=== PATIENT | male | born 1965 | race Two or more races ===

== ENCOUNTER 2020-05-20 08:27 | Inpatient (IN) | payer OTHER ==
[~2020-05-20] VITALS: Ht 182.9 cm; Wt 100.1 kg
[2020-05-20] MEDS ORDERED: DexAMETHasone SOD PHOS 10MG/1ML VIAL INJ ONE (08:55)
[2020-05-20] MEDS ORDERED: cefTRIAXone 1GM/50ML D5W 50 ML IV ONE ×2 (08:55→09:00)
[2020-05-20] MEDS ORDERED: SODIUM CHLORIDE 0.9% 1,000 ML IV ONE ×2 (09:00)
[2020-05-20] MEDS ORDERED: DexAMETHasone SOD PHOS 10MG/1ML VIAL INJ IV ONE (09:00)
[2020-05-20 09:22] LABS: Basophils # (auto) 0.1 10 ^3/uL (0-0.2); Basophils % (auto) 1.1 % (0.0-2.0); Eosinophils # (auto) 0.2 10 ^3/uL (0-0.8); Eosinophils % (auto) 2.2 % (0.0-7.0); Hematocrit 46.3 % (41.0-53.0); Hemoglobin 15.7 g/dL (13.5-17.5); Lymphocytes # (auto) 1.6 10 ^3/uL (0.4-5.4); Lymphocytes % (auto) 15.3 % (10.0-50.0); Mean Corpuscular Hemoglobin 29.9 pg (28.0-32.0); Mean Corpuscular Hgb Conc. 33.9 g/dL (32.0-36.0); Mean Corpuscular Volume 88.4 fL (80.0-100.0); Monocytes # (auto) 0.9 10 ^3/uL (0-1.3); Monocytes % (auto) 8.6 % (0.0-12.0); Neutrophils # (auto) 7.7 10 ^3/uL (1.6-8.6); Neutrophils % (auto) 72.8 % (37.0-80.0); Nucleated Red Blood Cells % 0.3 %; Platelet Count (auto) 520 10^3/uL (140-450); Red Blood Cells 5.24 10^6/uL (4.5-5.90); Red Cell Distribution Width 13.1 % (11.8-14.3); White Blood Cell 10.5 10^3/uL (4.4-10.8)
[2020-05-20 09:35] LABS: Albumin 2.7 g/dL (3.4-5.0); Anion Gap 10 (5-15); Blood Urea Nitrogen 11 mg/dL (7-18); Calcium 9.3 mg/dL (8.5-10.1); Carbon Dioxide 22 mmol/L (21-32); Chloride 103 mmol/L (98-107); Potassium 4.2 mmol/L (3.5-5.1); Sodium 135 mmol/L (136-145)
[2020-05-20 09:38] LABS: Lactic Acid w/Reflex 3.2 mmol/L (0.4-2.0)
[2020-05-20 09:43] LABS: Alanine Aminotransferase 25 U/L (16-61); Alkaline Phosphatase 112 U/L (45-117); Aspartate Aminotransferase 36 U/L (15-37); Bilirubin, Total 0.9 mg/dL (0.2-1.0); GFR African American 100 mL/min; GFR Non-African American 83 mL/min; Glucose 266 mg/dL (74-106)
[2020-05-20 09:46] LABS: INR 1.12 (0.9-1.15); Partial Thromboplastin Time 28.4 sec (23.0-31.2)
[2020-05-20 09:48] LABS: CRP High Sensitivity 7.97 mg/dL (< 0.3)
[2020-05-20] MEDS ORDERED: PIPERACILLIN-TAZOB 3.375GM 100 ML IV ONE (10:15)
[2020-05-20] MEDS ORDERED: ACETAMINOPHEN 500 MG TAB PO PRN (10:15)
[2020-05-20] MEDS ORDERED: MORPHINE SULF INJ 2 MG/ML SYRINGE 1ML IV PRN ×2 (10:15)
[2020-05-20] MEDS ORDERED: ACETAMINOPHEN 325 MG TAB PO PRN (10:15)
[2020-05-20] MEDS ORDERED: ONDANSETRON HCL 4 MG/2 ML VIAL IV PRN (10:15)
[2020-05-20] MEDS ORDERED: DOCUSATE SOD 100 MG CAP PO PRN (10:15)
[2020-05-20] MEDS ORDERED: hydrALAZINE HCL 25 MG TAB PO PRN (10:15)
[2020-05-20] MEDS ORDERED: methylPREDNISolone SOD SUCC 125 MG/2 ML VL IV ONE (10:15)
[2020-05-20] MEDS ORDERED: ENOXAPARIN SOD 100 MG/1 ML SYRINGE SC ONE (10:15)
[2020-05-20] MEDS ORDERED: NITROGLYCERIN 0.4 MG SL TAB SL PRN (10:15)
[2020-05-20] MEDS ORDERED: DEXTROSE (50%) 50ML SYRG IV PRN ×2 (10:15→23:00)
[2020-05-20] MEDS ORDERED: VANCOMYCIN PER PHARMACY 0 MG IV SCH (10:15)
[2020-05-20] MEDS ORDERED: ALUM & MAG HYDROX-SIMETH LIQ(MAALOX) 30 ML PO PRN (10:15)
[2020-05-20] MEDS: PIPERACILLIN-TAZOB 3.375GM 100 ML IV SCH ×3 (10:37→23:41)
[2020-05-20] MEDS: SODIUM CHLORIDE 0.9% 1,000 ML IV SCH (10:41)
[2020-05-20] MEDS ORDERED: THIAMINE 100mg/ml INJ (200mg/2ml VIAL) IV ONE (10:45)
--- NOTE | 2020-05-20 11:21 | NUR ---
Telemetry admit from [facility] admitted to Telemetry unit after SBAR received. Patient oriented to JONY DERAS, RN primary RN, unit, room, bed, and unit policies regarding patient care and visiting hours. Patient now on continuous telemetry monitoring, tele box # 10. Patient placed on bedside oxygen, weighed by bed scale and encouraged to call if they need something. All questions and concerns addressed, patient verbalized understanding. VS: 97.5, 107, 19, 91%, 148/94. No complaints of pain or discomfort at this time.
[2020-05-20 11:30] VITALS: BP 148/84
[2020-05-20] MEDS ORDERED: MULT-1018 PO (11:56)
[2020-05-20] MEDS ORDERED: ALBUAER3 IN (11:59)
--- NOTE | 2020-05-20 12:30 | NUR ---
Med rec Per patient he does not take any home medications
[2020-05-20] MEDS: ACCU-CHEK COMFORT CURVE STRIP VI SCH ×4 (12:52→23:41)
[2020-05-20] MEDS: InsuLIN REG 1unit/0.01ml Soln (100units/ml) SC SCH ×3 (13:01→23:46)
[2020-05-20] MEDS: ALBUTEROL SULF HFA 90MCG INH 200DOSE IN SCH ×2 (14:00→20:17)
[2020-05-20] MEDS: methylPREDNISolone SOD SUCC 40 MG/ML VL IV SCH ×2 (14:28→22:07)
[2020-05-20 15:57] LABS: Cholesterol 197 mg/dL (< 200)
[2020-05-20 16:01] LABS: HDL Cholesterol 22 mg/dL (40-59); LDL Cholesterol 139 mg/dL (< 100); Triglycerides 230 mg/dL (< 150)
[2020-05-20 17:00] VITALS: BP 139/87
--- NOTE | 2020-05-20 17:00 | NUR ---
Blood sugar Patients blood sugar 439. Administered 15 units per sliding scale and paged Dr Lee to inform of blood sugar and to receive any further orders.
[2020-05-20] MEDS ORDERED: INSULIN LANTUS (GLARGINE) 1 /0.01ml (100units/ml) SC ONE (17:30)
--- NOTE | 2020-05-20 17:30 | NUR ---
Informed Dr Lee of patients blood sugar of 439. Order received for 1 time dose of 10 units Lantus now and change sliding scale to aggressive. Orders carried out as received.
[2020-05-20] MEDS: BUDESONIDE (INHALATION) 180 MCG IH IN SCH (20:17)
[2020-05-20] MEDS: FAMOTIDINE (10MG/ML) 2ML VL IV SCH (21:51)
[2020-05-20] MEDS: ENOXAPARIN SOD 100 MG/1 ML SYRINGE SC SCH (21:54)
[2020-05-20 22:00] VITALS: BP 140/82
[2020-05-20] MEDS ORDERED: InsuLIN REG 1unit/0.01ml Soln (100units/ml) SC SCH (22:00)
[2020-05-20] MEDS ORDERED: ATORVASTATIN 20 MG TAB PO SCH (22:00)
--- NOTE | 2020-05-20 22:07 | NUR ---
HOSPITALIST PAGED PATIENTS BS IS 471. PATIENT RECENTLY CHANGED TO AGGRESSIVE SCALE DURING DAYSHIFT BUT STILL ON REGULAR DIET AND BEDTIME SCALE DURING NIGHT. PATIENT IS ASYMPTOMATIC. PATIENT GIVEN 10 UNITS PER SCALE. WILL AWAIT CALL BACK OR ORDERS.
--- NOTE | 2020-05-20 22:45 | NUR ---
HOSPITALIST CONTACTED HOSPITALIST INFORMED OF PATIENT'S BS AND CURRENT ORDERS. ORDERS ADJUSTED AND PATIENT WILL BE MONITORED MORE FREQUENTLY AND DIET CHANGED UNTIL SUGAR IS MANAGED. WILL IMPLEMENT ORDERS AND CONTINUE TO MONITOR.
--- NOTE | 2020-05-21 | NUR ---
BS Davida BERNABE ALREADY AWARE AND ORDERS IMPLEMENTED AT THIS TIME. WILL CONTINUE TO MONITOR.
[2020-05-21 00:12] VITALS: BP 140/82
[2020-05-21] MEDS: SODIUM CHLORIDE 0.9% 1,000 ML IV SCH (02:55)
[2020-05-21] MEDS: ACCU-CHEK COMFORT CURVE STRIP VI SCH ×4 (04:11→22:00)
[2020-05-21] MEDS: InsuLIN REG 1unit/0.01ml Soln (100units/ml) SC SCH ×4 (04:12→22:00)
[2020-05-21 05:00] VITALS: BP 119/78
[2020-05-21] MEDS: methylPREDNISolone SOD SUCC 40 MG/ML VL IV SCH (05:51)
[2020-05-21] MEDS: PIPERACILLIN-TAZOB 3.375GM 100 ML IV SCH (05:51)
[2020-05-21 06:14] LABS: Basophils # (auto) 0 10 ^3/uL (0-0.2); Basophils % (auto) 0.3 % (0.0-2.0); Eosinophils # (auto) 0 10 ^3/uL (0-0.8); Hematocrit 38.9 % (41.0-53.0); Hemoglobin 13.3 g/dL (13.5-17.5); Lymphocytes # (auto) 1.1 10 ^3/uL (0.4-5.4); Lymphocytes % (auto) 10.1 % (10.0-50.0); Mean Corpuscular Hemoglobin 30.2 pg (28.0-32.0); Mean Corpuscular Hgb Conc. 34.3 g/dL (32.0-36.0); Mean Corpuscular Volume 88.1 fL (80.0-100.0); Monocytes # (auto) 0.6 10 ^3/uL (0-1.3); Monocytes % (auto) 5.3 % (0.0-12.0); Neutrophils # (auto) 9.2 10 ^3/uL (1.6-8.6); Neutrophils % (auto) 84.3 % (37.0-80.0); Platelet Count (auto) 402 10^3/uL (140-450); Red Blood Cells 4.42 10^6/uL (4.5-5.90); Red Cell Distribution Width 13.1 % (11.8-14.3); White Blood Cell 10.9 10^3/uL (4.4-10.8)
[2020-05-21 06:34] LABS: Calcium 8.8 mg/dL (8.5-10.1); Potassium 4.3 mmol/L (3.5-5.1)
[2020-05-21 06:41] LABS: Albumin 2.3 g/dL (3.4-5.0); Bilirubin, Total 0.6 mg/dL (0.2-1.0); Total Protein 7.1 g/dL (6.4-8.2)
[2020-05-21] MEDS ORDERED: InsuLIN REG 1unit/0.01ml Soln (100units/ml) SC SCH (07:00)
[2020-05-21] MEDS: ALBUTEROL SULF HFA 90MCG INH 200DOSE IN SCH ×3 (07:13→22:12)
[2020-05-21] MEDS: BUDESONIDE (INHALATION) 180 MCG IH IN SCH ×2 (07:13→22:12)
--- NOTE | 2020-05-21 07:40 | NUR ---
OPENING NOTE ASSUMED CARE OF PT. ALERT AND ORIENTED. NO S/S PF SOB/DISTRESS NOTED. BED SET TO LOWEST POSITION/LOCKED. BEDSIDE RIALS UP X2. CALL LIGHT WITHIN REACH. INSTRUCTED PT TO CALL FOR ASSISTANCE. UPDATED ON POC. PT VERBALIZED UNDERSTANDING. WILL CONTINUE TO MONITOR Q1HR AND PRN.
[2020-05-21 08:46] VITALS: BP 120/72
[2020-05-21] MEDS: FAMOTIDINE (10MG/ML) 2ML VL IV SCH (08:49)
[2020-05-21] MEDS: ASCORBIC ACID 1,000 MG TAB PO SCH (08:50)
[2020-05-21] MEDS: ENOXAPARIN SOD 100 MG/1 ML SYRINGE SC SCH ×2 (08:50→22:39)
[2020-05-21] MEDS: ZINC SULFATE 220mg CAP or TAB PO SCH (08:50)
[2020-05-21] MEDS: CHOLECALCIFEROL (VITD3) 2,000 UNIT CAP PO SCH (08:50)
[2020-05-21] MEDS: HYDROcodone-ACET 5/325MG TAB PO PRN ×2 (09:53→16:57)
[2020-05-21] MEDS ORDERED: THIAMINE 100mg/ml INJ (200mg/2ml VIAL) IV SCH (10:00)
[2020-05-21] MEDS ORDERED: ASPirin 81 mg TAB PO SCH (10:00)
[2020-05-21] MEDS ORDERED: FUROSEMIDE 40 MG/4 ML VIAL IV ONE (11:45)
[2020-05-21] MEDS ORDERED: DEXTROSE (50%) 50ML SYRG IV PRN (11:45)
[2020-05-21] MEDS ORDERED: INSULIN LANTUS (GLARGINE) 1 /0.01ml (100units/ml) SC ONE (11:45)
[2020-05-21] MEDS ORDERED: DexAMETHasone SOD PHOS 10MG/1ML VIAL INJ IV ONE (11:45)
[2020-05-21 12:20] VITALS: BP 128/78
[2020-05-21] MEDS: DOXYCYCLINE 100MG/250ML 250 ML IV SCH (12:33)
--- NOTE | 2020-05-21 15:21 | NUR ---
Nutrition Assessment/Consult Notes Please refer to link for full assessment notes. Est Energy needs: 1225-2672 kcals (20-23 kcal/kgBW) Est Protein needs: 79-98 gms/day (0.8-1.0 gm/kgBW) Will continue to monitor and reassess prn. Addendum: 05/21/20 at [address] Amended: Links added.
[2020-05-21 16:18] LABS: Urine Bacteria NONE SEEN /hpf (None Seen); Urine Blood Negative /uL (Negative); Urine Mucus FEW (None Seen); Urine Specific Gravity 1.007 (1.001-1.035); Urine WBC <1 /hpf (0 - 3)
[2020-05-21 16:20] LABS: Amphetamine Screen, Urine NEGATIVE (NEGATIVE); Barbiturate Scree,Urine NEGATIVE (NEGATIVE); Benzodiazephine Screen, Urine NEGATIVE (NEGATIVE); Cannabinoid Screen, Urine NEGATIVE (NEGATIVE); Cocaine Screen, Urine NEGATIVE (NEGATIVE); Opiate Scree,Urine NEGATIVE (NEGATIVE); Phencyclidine Screen, Urine NEGATIVE (NEGATIVE)
[2020-05-21 17:00] VITALS: BP 126/82
[2020-05-21] MEDS ORDERED: REMDESIVIR 200 MG in NS 210ml LOADING DOSE ADULT IV ONE (17:00)
--- NOTE | 2020-05-21 17:00 | NUR ---
REMDESIVIR PRE-INFUSION VS BP:126/82 [facility] HR: 104 BPM SPO2" 93%
--- NOTE | 2020-05-21 17:15 | NUR ---
REMDESIVIR 15 MIN-INFUSION VS BP:130/97 [facility] HR: 100 BPM SPO2: 91%
--- NOTE | 2020-05-21 17:22 | NUR ---
BLOOD GLUCOSE PATIENT BLOOD GLUCOSE 467 MG/DL. INITIATED PROTOCOL. PAGED HOSPITALIST. AWAITING CALL BACK. SPOKE TO HOSPITALIST RE BG. PER EVITA COTTO. NO NEW ORDERS GIVEN. WILL CONTINUE TO MONITOR.
--- NOTE | 2020-05-21 18:11 | NUR ---
REMDESIVIR POST-INFUSION VS BP: 119/93 [facility] HR: 100 BPM SPO2: 92%
--- NOTE | 2020-05-21 19:15 | NUR ---
Opening Shift Note Received report from dionisio Blair RN. Assumed care of patient, awake and alert. No S/S of distress/SOB or pain. On 8L Oxymizer saturating at 91%. Instructed on POC and to call for assist PRN, will continue to monitor for changes Q1hr and PRN. Bed placed in lowest position and call light within reach.
--- NOTE | 2020-05-21 21:52 | NUR ---
Patient's blood sugar is 426mg/dl, but patient refused to have another blood sugar check. Patient also refused to have lantus and regular insulin coverage. Patient states " let's skip the coverage for tonight and check in the morning". He also states that he's been stick many times today and does not want to be stick anymore for tonight. Will let hospitalist know.
[2020-05-21 22:00] VITALS: BP 126/80
[2020-05-21] MEDS: INSULIN LANTUS (GLARGINE) 1 /0.01ml (100units/ml) SC SCH (22:00)
--- NOTE | 2020-05-21 22:30 | NUR ---
Hospitalist paged, awaiting call back.
--- NOTE | 2020-05-21 22:40 | NUR ---
Hospitalist call back and made aware of patient's refusal for lantus and regular insulin. Hospitalist states that there is nothing we can do.
[2020-05-22] VITALS (8 sets, daily range): BP systolic 113–136; BP diastolic 72–88
[2020-05-22] MEDS: DOXYCYCLINE 100MG/250ML 250 ML IV SCH ×2 (00:11→12:05)
--- NOTE | 2020-05-22 00:58 | NUR ---
Plasma infusion started. Pre infusion vitals are: Temp 98.0, 92% on 8L Oxymizer, 124/79, 89 pulse, 20 respirations. Will monitor.
--- NOTE | 2020-05-22 01:49 | NUR ---
Plasma infusion ended. No adverse reactions noted. Vitals are: blood pressure 136/80, pulse 79, resp 18, 93% on 3L Oxymizer, 97.9temp. Patient is resting in bed alert and awake. No distress noted.
[2020-05-22] MEDS: HYDROcodone-ACET 5/325MG TAB PO PRN ×2 (02:00→22:19)
[2020-05-22 06:27] LABS: Basophils # (auto) 0 10 ^3/uL (0-0.2); Basophils % (auto) 0.1 % (0.0-2.0); Eosinophils # (auto) 0 10 ^3/uL (0-0.8); Eosinophils % (auto) 0.1 % (0.0-7.0); Hematocrit 40.1 % (41.0-53.0); Hemoglobin 13.1 g/dL (13.5-17.5); Lymphocytes # (auto) 1.4 10 ^3/uL (0.4-5.4); Lymphocytes % (auto) 10.6 % (10.0-50.0); Mean Corpuscular Hemoglobin 29.2 pg (28.0-32.0); Mean Corpuscular Hgb Conc. 32.7 g/dL (32.0-36.0); Mean Corpuscular Volume 89.2 fL (80.0-100.0); Monocytes # (auto) 1.2 10 ^3/uL (0-1.3); Monocytes % (auto) 9.3 % (0.0-12.0); Neutrophils # (auto) 10.7 10 ^3/uL (1.6-8.6); Neutrophils % (auto) 79.9 % (37.0-80.0); Nucleated Red Blood Cells % 0.3 %; Platelet Count (auto) 382 10^3/uL (140-450); Red Blood Cells 4.49 10^6/uL (4.5-5.90); Red Cell Distribution Width 13.3 % (11.8-14.3); White Blood Cell 13.4 10^3/uL (4.4-10.8)
[2020-05-22 06:45] LABS: Albumin 2.5 g/dL (3.4-5.0); Potassium 4.9 mmol/L (3.5-5.1)
[2020-05-22 06:49] LABS: BUN/Creatinine Ratio 22.8; Bilirubin, Total 0.6 mg/dL (0.2-1.0); Total Protein 7.1 g/dL (6.4-8.2)
[2020-05-22] MEDS: ACCU-CHEK COMFORT CURVE STRIP VI SCH ×4 (07:08→22:10)
[2020-05-22] MEDS: INSULIN LANTUS (GLARGINE) 1 /0.01ml (100units/ml) SC SCH ×2 (07:10→22:09)
[2020-05-22] MEDS: InsuLIN REG 1unit/0.01ml Soln (100units/ml) SC SCH ×4 (07:12→22:08)
[2020-05-22] MEDS: BUDESONIDE (INHALATION) 180 MCG IH IN SCH ×2 (08:23→22:28)
[2020-05-22] MEDS: ALBUTEROL SULF HFA 90MCG INH 200DOSE IN SCH ×3 (08:23→22:28)
[2020-05-22] MEDS: ASCORBIC ACID 1,000 MG TAB PO SCH (10:04)
[2020-05-22] MEDS: CHOLECALCIFEROL (VITD3) 2,000 UNIT CAP PO SCH (10:04)
[2020-05-22] MEDS: ZINC SULFATE 220mg CAP or TAB PO SCH (10:05)
[2020-05-22] MEDS: DexAMETHasone SOD PHOS 10MG/1ML VIAL INJ IV SCH (10:05)
[2020-05-22] MEDS: FUROSEMIDE 40 MG/4 ML VIAL IV SCH (10:05)
[2020-05-22] MEDS: ENOXAPARIN SOD 100 MG/1 ML SYRINGE SC SCH (10:06)
[2020-05-22] MEDS: cefTRIAXone 1GM/50ML D5W 50 ML IV SCH (10:06)
[2020-05-22] MEDS ORDERED: ACETAMINOPHEN 325 MG TAB PO PRN (11:30)
[2020-05-22] MEDS: REMDESIVIR 100mg in NS 230ml DAILYx4DAYS (NO VENT) IV SCH (17:00)
--- NOTE | 2020-05-22 17:00 | NUR ---
EMDESIVIR PRE-INFUSION VS BP:120/76 [facility] HR: 84 BPM SPO2" 92%
--- NOTE | 2020-05-22 17:15 | NUR ---
REMDESIVIR 15 MIN-INFUSION VS BP:134/91 [facility] HR: 86 BPM SPO2: 92%
--- NOTE | 2020-05-22 18:05 | NUR ---
REMDESIVIR POST-INFUSION VS BP: 129/91 [facility] HR: 105 BPM SPO2: 92%
--- NOTE | 2020-05-22 19:10 | NUR ---
Opening Shift Note Received report from dionisio Blair RN. Assumed care of patient, awake and alert. No S/S of distress/SOB or pain. On 8L Oxymizer saturating at 93%. Instructed on POC and to call for assist PRN, will continue to monitor for changes Q1hr and PRN. Bed placed in lowest position and call light within reach.
--- NOTE | 2020-05-22 21:00 | NUR ---
IV insertion IV access obtained, via clean sterile technique by inserting 22 gauge catheter at left hand after first attempt. IV secured properly. No trauma to site. Patient tolerated well.
[2020-05-22] MEDS ORDERED: INSULIN LANTUS (GLARGINE) 1 /0.01ml (100units/ml) SC SCH (22:00)
[2020-05-22] MEDS: DOXYCYCLINE 100 MG TAB/CAP PO SCH (22:10)
[2020-05-23 05:00] VITALS: BP 138/82
[2020-05-23 06:29] LABS: Calcium 9.2 mg/dL (8.5-10.1); Potassium 3.8 mmol/L (3.5-5.1)
[2020-05-23 06:33] LABS: BUN/Creatinine Ratio 26.3; Bilirubin, Total 0.7 mg/dL (0.2-1.0); Total Protein 8.1 g/dL (6.4-8.2)
[2020-05-23] MEDS: ACCU-CHEK COMFORT CURVE STRIP VI SCH ×4 (07:00→22:08)
[2020-05-23] MEDS: InsuLIN REG 1unit/0.01ml Soln (100units/ml) SC SCH ×4 (07:32→22:09)
[2020-05-23] MEDS: INSULIN LANTUS (GLARGINE) 1 /0.01ml (100units/ml) SC SCH ×2 (07:50→22:10)
[2020-05-23 09:00] VITALS: BP 113/73
[2020-05-23] MEDS: ALBUTEROL SULF HFA 90MCG INH 200DOSE IN SCH ×3 (09:45→22:48)
[2020-05-23] MEDS: BUDESONIDE (INHALATION) 180 MCG IH IN SCH ×2 (09:45→22:48)
[2020-05-23] MEDS: DexAMETHasone SOD PHOS 10MG/1ML VIAL INJ IV SCH (11:07)
[2020-05-23] MEDS: cefTRIAXone 1GM/50ML D5W 50 ML IV SCH (11:07)
[2020-05-23] MEDS: ZINC SULFATE 220mg CAP or TAB PO SCH (11:08)
[2020-05-23] MEDS: FUROSEMIDE 40 MG/4 ML VIAL IV SCH (11:08)
[2020-05-23] MEDS: CHOLECALCIFEROL (VITD3) 2,000 UNIT CAP PO SCH (11:10)
[2020-05-23] MEDS: ASCORBIC ACID 1,000 MG TAB PO SCH (11:10)
[2020-05-23] MEDS: DOXYCYCLINE 100 MG TAB/CAP PO SCH ×2 (11:10→22:08)
[2020-05-23] MEDS: ENOXAPARIN SOD 40 MG/0.4 ML SYRINGE SC SCH (11:11)
[2020-05-23 12:59] VITALS: BP 117/75
[2020-05-23 16:30] VITALS: BP 108/80
[2020-05-23] MEDS: REMDESIVIR 100mg in NS 230ml DAILYx4DAYS (NO VENT) IV SCH (17:20)
--- NOTE | 2020-05-23 17:20 | NUR ---
REMDESIVIR PRE-INFUSION VS BP:108/80 [facility] HR: 86 BPM SPO2" 93%
--- NOTE | 2020-05-23 17:35 | NUR ---
REMDESIVIR 15 MIN-INFUSION VS BP:120/84 [facility] HR: 83 BPM SPO2: 96%
--- NOTE | 2020-05-23 18:01 | NUR ---
BLADDER SCAN BLADDER SCAND PATIENT PER MD ORDER. 108 ML POST RESIDUAL.
--- NOTE | 2020-05-23 18:30 | NUR ---
REMDESIVIR POST-INFUSION VS BP: 114/76 [facility] HR: 81 BPM SPO2: 95%
--- NOTE | 2020-05-23 19:40 | NUR ---
Opening Shift Note Patient is AOx4 w/ HOB at 30 degrees and laying supine. Bed is locked in lowest position and call light is with reach. Patient is on 8L/min of oxygen on a NC Oxymizer. Oxygen saturation is 94%.POC discussed with patient, patient verbally agreed to understanding. Patient has no s/s of distress or SOB at this time. Patient complains of some throbbing pain in feet and requested pain medication before bed. He currently wants to wait for pain medication. Will continue to monitor.
[2020-05-23 19:41] VITALS: BP 108/80
[2020-05-23 21:56] VITALS: BP 110/70
[2020-05-23] MEDS: HYDROcodone-ACET 5/325MG TAB PO PRN (22:17)
[2020-05-24 05:48] VITALS: BP 110/75
[2020-05-24 06:57] LABS: Basophils # (auto) 0 10 ^3/uL (0-0.2); Basophils % (auto) 0.4 % (0.0-2.0); Eosinophils # (auto) 0.2 10 ^3/uL (0-0.8); Eosinophils % (auto) 1.6 % (0.0-7.0); Hematocrit 42.8 % (41.0-53.0); Hemoglobin 14.2 g/dL (13.5-17.5); Lymphocytes % (auto) 18.6 % (10.0-50.0); Mean Corpuscular Hemoglobin 29.2 pg (28.0-32.0); Mean Corpuscular Hgb Conc. 33.2 g/dL (32.0-36.0); Mean Corpuscular Volume 87.7 fL (80.0-100.0); Monocytes # (auto) 1.1 10 ^3/uL (0-1.3); Monocytes % (auto) 10.5 % (0.0-12.0); Neutrophils # (auto) 7.3 10 ^3/uL (1.6-8.6); Neutrophils % (auto) 68.9 % (37.0-80.0); Platelet Count (auto) 339 10^3/uL (140-450); Red Blood Cells 4.88 10^6/uL (4.5-5.90); Red Cell Distribution Width 13.5 % (11.8-14.3); White Blood Cell 10.7 10^3/uL (4.4-10.8)
[2020-05-24] MEDS: INSULIN LANTUS (GLARGINE) 1 /0.01ml (100units/ml) SC SCH ×2 (07:00→21:54)
[2020-05-24] MEDS: InsuLIN REG 1unit/0.01ml Soln (100units/ml) SC SCH ×4 (07:00→21:56)
[2020-05-24] MEDS: ACCU-CHEK COMFORT CURVE STRIP VI SCH ×4 (07:03→21:53)
[2020-05-24 07:14] LABS: Potassium 3.9 mmol/L (3.5-5.1)
[2020-05-24 07:21] LABS: Albumin 2.8 g/dL (3.4-5.0); BUN/Creatinine Ratio 28.9; Bilirubin, Total 0.6 mg/dL (0.2-1.0); Total Protein 6.9 g/dL (6.4-8.2)
[2020-05-24] MEDS: ALBUTEROL SULF HFA 90MCG INH 200DOSE IN SCH ×3 (07:49→22:06)
[2020-05-24] MEDS: BUDESONIDE (INHALATION) 180 MCG IH IN SCH ×2 (07:49→22:06)
[2020-05-24 08:42] VITALS: BP 107/70
[2020-05-24] MEDS: cefTRIAXone 1GM/50ML D5W 50 ML IV SCH (10:33)
[2020-05-24] MEDS: ENOXAPARIN SOD 40 MG/0.4 ML SYRINGE SC SCH (10:34)
[2020-05-24] MEDS: CHOLECALCIFEROL (VITD3) 2,000 UNIT CAP PO SCH (10:34)
[2020-05-24] MEDS: ASCORBIC ACID 1,000 MG TAB PO SCH (10:34)
[2020-05-24] MEDS: DexAMETHasone 4 MG TAB PO SCH (10:34)
[2020-05-24] MEDS: DOXYCYCLINE 100 MG TAB/CAP PO SCH ×2 (10:34→21:53)
[2020-05-24] MEDS: ZINC SULFATE 220mg CAP or TAB PO SCH (10:35)
[2020-05-24] MEDS: FUROSEMIDE 40 MG/4 ML VIAL IV SCH (10:35)
--- NOTE | 2020-05-24 12:50 | NUR ---
Nutrition Followup Notes Pt wt is 110.3 kg Unable to see pt d/t pt is positive for COVID. Pt is with a CCHO 45g diet, appetite is good aeb ave 88% PO intake over 4 meals per RN doc. Consider a CCHO 60g diet. Refer to dietary recommendations noted below under Comments. Est Energy needs: 8108-6822 kcals (20-23 kcal/kgBW) Est Protein needs: 79-98 gms/day (0.8-1.0 gm/kgBW) Will continue to monitor and reassess prn. LABS: Gluc 129 H, A1c 10.9 H, Alb 2.8 L, Triglyc 230 H, HDL 22 L GI: Pt had 2 BM on 05/23 per RN doc. BS: 21 low risk. Refer to wound assessment report for full details. PES: 1) Food and nutrition related knowledge deficit r/t dietary non-compliance aeb elev A1c, hyperglycemia 2) Altered nutrition related lab values r/t current/chronic medical condition aeb hyperglycemia, elev A1c, hypoalbuminemia Comments Will continue to monitor PO status, skin status, pertinent labs and weight trends. Will f/u in 3-5 days. 1) Continue to carefully monitor pt PO intake to meet at least 75% of meals 2) Suggest a CCHO 60g diet 3) If albumin continues trending down consider Prostat 1 pkt BID 4) Refer pt to a RD/CDE for nutriton education upon D/C 5) Continue current plan of care
[2020-05-24 13:21] VITALS: BP 108/73
[2020-05-24] MEDS ORDERED: IOHEXOL 350 MG/ML 100ML IJ ONE (14:09)
[2020-05-24] MEDS: REMDESIVIR 100mg in NS 230ml DAILYx4DAYS (NO VENT) IV SCH (17:00)
[2020-05-24 17:23] VITALS: BP 128/83
--- NOTE | 2020-05-24 20:00 | NUR ---
Opening Shift Note Assumed care of patient, awake and alert. No S/S of distress/SOB or pain. Pt on 6L oxymizer saturating at 95%. VSS. Safety measures in place, bed in lowest locked position, bed rails raised x2, call light within reach. All needs addressed at this time. POC discussed with patient. Will continue to monitor for changes Q1hr and PRN.
[2020-05-24 21:50] VITALS: BP 114/76
[2020-05-24] MEDS ORDERED: ENOXAPARIN SOD 100 MG/1 ML SYRINGE SC SCH (22:00)
--- NOTE | 2020-05-24 22:00 | NUR ---
Pt states having coughed up some blood and blown blood out of his nose. Pt states that this has been happening since he has been here. Pt informed that this could be caused from the continuous oxygen administration and a dry airway. Pt offered lubricant for his nose. Pt states that this was happening before he came to the hospital so he does not think the oxygen is what is causing it. Pt told by this RN that the information will be endorsed to Day RN to address concerns. Pt verbalized understanding.
[2020-05-25 05:24] VITALS: BP 115/79
--- NOTE | 2020-05-25 06:23 | NUR ---
AM blood sugar 97. Sliding scale held per parameters. Hospitalist paged regarding scheduled Lantus. Orders received and being carried out. Addendum: 05/25/20 at 0635 by Cindi Acevedo RN RN Per hospitalist, hold scheduled lantus.
[2020-05-25] MEDS: ACCU-CHEK COMFORT CURVE STRIP VI SCH ×4 (06:33→22:00)
[2020-05-25] MEDS: INSULIN LANTUS (GLARGINE) 1 /0.01ml (100units/ml) SC SCH ×2 (06:33→21:12)
[2020-05-25] MEDS: InsuLIN REG 1unit/0.01ml Soln (100units/ml) SC SCH ×4 (06:34→21:12)
--- NOTE | 2020-05-25 07:33 | NUR ---
Opening Shift Note Assumed care of patient, awake and alert. No S/S of distress/SOB, Remains on 6l oxy, denies pain. Instructed on POC and to call for assist PRN, will continue to monitor for changes Q1hr and PRN.
[2020-05-25] MEDS: BUDESONIDE (INHALATION) 180 MCG IH IN SCH ×2 (07:39→21:35)
[2020-05-25] MEDS: ALBUTEROL SULF HFA 90MCG INH 200DOSE IN SCH ×3 (07:39→21:35)
[2020-05-25 09:00] VITALS: BP 123/62
[2020-05-25] MEDS: cefTRIAXone 1GM/50ML D5W 50 ML IV SCH (10:00)
[2020-05-25] MEDS: FUROSEMIDE 40 MG/4 ML VIAL IV SCH (10:00)
[2020-05-25] MEDS: ZINC SULFATE 220mg CAP or TAB PO SCH (10:01)
[2020-05-25] MEDS: DOXYCYCLINE 100 MG TAB/CAP PO SCH ×2 (10:01→21:10)
[2020-05-25] MEDS: DexAMETHasone 4 MG TAB PO SCH (10:01)
[2020-05-25] MEDS: APIXABAN 5 MG TAB PO SCH ×2 (10:01→21:10)
[2020-05-25] MEDS: CHOLECALCIFEROL (VITD3) 2,000 UNIT CAP PO SCH (10:02)
[2020-05-25] MEDS: ASCORBIC ACID 1,000 MG TAB PO SCH (10:02)
[2020-05-25 13:00] VITALS: BP 115/74
[2020-05-25 17:00] VITALS: BP 120/79
[2020-05-25] MEDS: REMDESIVIR 100mg in NS 230ml DAILYx4DAYS (NO VENT) IV SCH (17:09)
--- NOTE | 2020-05-25 20:00 | NUR ---
Opening Shift Note Assumed care of patient, awake and alert. No S/S of distress/SOB or pain. Instructed on POC and to call for assist PRN, will continue to monitor for changes Q1hr and PRN.
[2020-05-25 21:00] VITALS: BP 107/68
[2020-05-26 05:00] VITALS: BP 104/70
[2020-05-26] MEDS ORDERED: traMADol HCL 50 MG TAB PO PRN (05:30)
[2020-05-26 05:58] LABS: Basophils # (auto) 0.1 10 ^3/uL (0-0.2); Basophils % (auto) 0.6 % (0.0-2.0); Eosinophils # (auto) 0.1 10 ^3/uL (0-0.8); Eosinophils % (auto) 0.9 % (0.0-7.0); Hematocrit 42.3 % (41.0-53.0); Lymphocytes % (auto) 16.4 % (10.0-50.0); Mean Corpuscular Hemoglobin 28.9 pg (28.0-32.0); Mean Corpuscular Hgb Conc. 33.1 g/dL (32.0-36.0); Mean Corpuscular Volume 87.4 fL (80.0-100.0); Monocytes # (auto) 1.1 10 ^3/uL (0-1.3); Monocytes % (auto) 9.2 % (0.0-12.0); Neutrophils # (auto) 8.7 10 ^3/uL (1.6-8.6); Neutrophils % (auto) 72.9 % (37.0-80.0); Nucleated Red Blood Cells % 0.2 %; Platelet Count (auto) 310 10^3/uL (140-450); Red Blood Cells 4.84 10^6/uL (4.5-5.90); Red Cell Distribution Width 13.6 % (11.8-14.3); White Blood Cell 11.9 10^3/uL (4.4-10.8)
[2020-05-26 06:15] LABS: Albumin 2.8 g/dL (3.4-5.0); Potassium 3.7 mmol/L (3.5-5.1)
[2020-05-26 06:18] LABS: BUN/Creatinine Ratio 24.3; Calcium 9.3 mg/dL (8.5-10.1); Magnesium 2.6 mg/dL (1.6-2.6)
[2020-05-26] MEDS: InsuLIN REG 1unit/0.01ml Soln (100units/ml) SC SCH ×4 (06:19→21:09)
[2020-05-26] MEDS: INSULIN LANTUS (GLARGINE) 1 /0.01ml (100units/ml) SC SCH ×2 (06:19→21:09)
[2020-05-26 06:20] LABS: INR 1.13 (0.9-1.15); Partial Thromboplastin Time 29.4 sec (23.0-31.2)
[2020-05-26] MEDS: ACCU-CHEK COMFORT CURVE STRIP VI SCH ×4 (06:20→21:11)
[2020-05-26 06:22] LABS: Phosphorus 4.3 mg/dL (2.5-4.90); Total Protein 6.9 g/dL (6.4-8.2)
[2020-05-26] MEDS: ALBUTEROL SULF HFA 90MCG INH 200DOSE IN SCH ×3 (07:47→22:15)
[2020-05-26] MEDS: BUDESONIDE (INHALATION) 180 MCG IH IN SCH ×2 (07:47→22:15)
--- NOTE | 2020-05-26 07:48 | NUR ---
IN PT ROOM FOR ABG. PT IS AGITATED AND AND ASKING WHY WE HAVE TO POKE HIM SO MUCH. PT EDUCATED ON ABG PROCEDURE. PT STILL AGITATED/ YELLING, AND STATES HE HAS BEEN POKED TOO MANY TIMES. RN JC AWARE OF PT BEHAVIOR. PER RN WILL NOTIFY DR LANE, REGARDING ABG ORDER WITH ELECTROLYTES TO VERIFY ORDER. PT IS ON 6L OXYMIZER, SPO2 94%, NO S/S OF RESPIRATORY DISTRESS. WILL WAIT TO HEAR BACK FROM MD.
[2020-05-26 09:00] VITALS: BP 111/73
--- NOTE | 2020-05-26 09:30 | NUR ---
PATIENT INSTRUCTED ON USING OXYGEN WHEN AMBULATING TO BATHROOM. PATIENT REFUSING TO WEAR OXYGEN WHEN AMBULATING. INFORMED PATIENT OF RISK OF NOT USING OXYGEN WHEN AMBULATING. PATIENT VERBALIZED UNDERSTANDING AND CONTINUES TO REFUSE.
[2020-05-26] MEDS: DexAMETHasone 4 MG TAB PO SCH (10:43)
[2020-05-26] MEDS: ASCORBIC ACID 1,000 MG TAB PO SCH (10:43)
[2020-05-26] MEDS: DOXYCYCLINE 100 MG TAB/CAP PO SCH ×2 (10:43→21:07)
[2020-05-26] MEDS: ZINC SULFATE 220mg CAP or TAB PO SCH (10:43)
[2020-05-26] MEDS: cefTRIAXone 1GM/50ML D5W 50 ML IV SCH (10:43)
[2020-05-26] MEDS: APIXABAN 5 MG TAB PO SCH ×2 (10:43→21:07)
[2020-05-26] MEDS: FUROSEMIDE 40 MG/4 ML VIAL IV SCH (10:44)
[2020-05-26] MEDS: CHOLECALCIFEROL (VITD3) 2,000 UNIT CAP PO SCH (10:44)
[2020-05-26 12:54] VITALS: BP 118/75
--- NOTE | 2020-05-26 15:05 | NUR ---
Al LANE AT BEDSIDE INFORMED OF PATIENT STATUS. INFORMED OF PATIENT INCREASED OXYGEN NEEDS. INFORMED OF PATIENTS DOCUMENTS THAT REQUIRE SIGNING. STATED HE WILL ENDORSE TO Al WILL PRIMARY HOSPITALIST.
[2020-05-26 17:00] VITALS: BP 133/79
[2020-05-26 20:52] VITALS: BP 118/81
[2020-05-27] VITALS (8 sets, daily range): BP systolic 109–133; BP diastolic 74–84
[2020-05-27] MEDS: InsuLIN REG 1unit/0.01ml Soln (100units/ml) SC SCH ×4 (06:54→22:30)
[2020-05-27] MEDS: ACCU-CHEK COMFORT CURVE STRIP VI SCH ×4 (06:55→22:29)
[2020-05-27] MEDS: INSULIN LANTUS (GLARGINE) 1 /0.01ml (100units/ml) SC SCH ×2 (06:55→22:30)
[2020-05-27] MEDS: ALBUTEROL SULF HFA 90MCG INH 200DOSE IN SCH ×3 (07:22→22:13)
[2020-05-27] MEDS: BUDESONIDE (INHALATION) 180 MCG IH IN SCH ×2 (07:23→22:13)
[2020-05-27 08:28] LABS: Basophils # (auto) 0 10 ^3/uL (0-0.2); Basophils % (auto) 0.3 % (0.0-2.0); Eosinophils # (auto) 0.2 10 ^3/uL (0-0.8); Eosinophils % (auto) 1.9 % (0.0-7.0); Hematocrit 45.7 % (41.0-53.0); Hemoglobin 15.1 g/dL (13.5-17.5); Lymphocytes # (auto) 2.5 10 ^3/uL (0.4-5.4); Lymphocytes % (auto) 19.4 % (10.0-50.0); Mean Corpuscular Hemoglobin 29.2 pg (28.0-32.0); Mean Corpuscular Volume 88.4 fL (80.0-100.0); Monocytes # (auto) 1.3 10 ^3/uL (0-1.3); Monocytes % (auto) 9.8 % (0.0-12.0); Neutrophils # (auto) 8.8 10 ^3/uL (1.6-8.6); Neutrophils % (auto) 68.6 % (37.0-80.0); Nucleated Red Blood Cells % 0.1 %; Platelet Count (auto) 302 10^3/uL (140-450); Red Blood Cells 5.17 10^6/uL (4.5-5.90); Red Cell Distribution Width 13.8 % (11.8-14.3); White Blood Cell 12.9 10^3/uL (4.4-10.8)
[2020-05-27 08:48] LABS: Potassium 3.8 mmol/L (3.5-5.1)
[2020-05-27 08:54] LABS: Albumin 3.1 g/dL (3.4-5.0); Bilirubin, Total 1.1 mg/dL (0.2-1.0); Calcium 9.2 mg/dL (8.5-10.1); INR 1.13 (0.9-1.15); Magnesium 2.8 mg/dL (1.6-2.6); Partial Thromboplastin Time 28.5 sec (23.0-31.2); Phosphorus 4.4 mg/dL (2.5-4.90); Total Protein 7.3 g/dL (6.4-8.2)
[2020-05-27] MEDS: cefTRIAXone 1GM/50ML D5W 50 ML IV SCH (09:15)
[2020-05-27] MEDS: ZINC SULFATE 220mg CAP or TAB PO SCH (09:17)
[2020-05-27] MEDS: FUROSEMIDE 40 MG/4 ML VIAL IV SCH (09:17)
[2020-05-27] MEDS: DexAMETHasone 4 MG TAB PO SCH (09:17)
[2020-05-27] MEDS: CHOLECALCIFEROL (VITD3) 2,000 UNIT CAP PO SCH (09:18)
[2020-05-27] MEDS: DOXYCYCLINE 100 MG TAB/CAP PO SCH ×2 (09:18→22:29)
[2020-05-27] MEDS: APIXABAN 5 MG TAB PO SCH ×2 (09:18→22:29)
[2020-05-27] MEDS: ASCORBIC ACID 1,000 MG TAB PO SCH (09:18)
--- NOTE | 2020-05-27 13:30 | NUR ---
Dr Castellon bedside with patient discussing plan of care
--- NOTE | 2020-05-27 13:45 | NUR ---
Patient work voluntary leave form Dr Castellon signed the patients work leave form for sick pay while in hospital. Form faxed to patients employer, [employer], to #[phone], to David raymond. Original given to patient, copy in patient chart
--- NOTE | 2020-05-27 14:38 | NUR ---
Nutrition Followup Notes Pt wt is 100.3 kg Unable to see pt d/t pt is positive for COVID. Pt is with a CCHO 45g diet, appetite is good aeb ave 83% PO intake over 3 meals per RN doc. Consider a CCHO 60g diet. Refer to dietary recommendations noted below under Comments. Est Energy needs: 6969-3656 kcals (20-23 kcal/kgBW) Est Protein needs: 79-98 gms/day (0.8-1.0 gm/kgBW) Will continue to monitor and reassess prn. LABS: Gluc 120 H, A1c 10.9 H, Alb 3.1 L GI: Pt had 2 BM on 05/27 per RN doc. BS: 20 low risk. Refer to wound assessment report for full details. PES: 1) Food and nutrition related knowledge deficit r/t dietary non-compliance aeb elev A1c, hyperglycemia 2) Altered nutrition related lab values r/t current/chronic medical condition aeb hyperglycemia, elev A1c, hypoalbuminemia Comments Will continue to monitor PO status, skin status, pertinent labs and weight trends. Will f/u in 3-5 days. 1) Continue to carefully monitor pt PO intake to meet at least 75% of meals 2) Suggest a CCHO 60g diet 3) If albumin continues trending down consider Prostat 1 pkt BID 4) Refer pt to a RD/CDE for nutriton education upon D/C 5) Continue current plan of care
--- NOTE | 2020-05-28 03:30 | NUR ---
Report/SBAR Report/SBAR given to SANDY Posada. Patient resting with eyes closed.
[2020-05-28 05:00] VITALS: BP 125/73
[2020-05-28] MEDS: ACCU-CHEK COMFORT CURVE STRIP VI SCH ×4 (05:38→21:55)
[2020-05-28] MEDS: InsuLIN REG 1unit/0.01ml Soln (100units/ml) SC SCH ×4 (05:39→21:53)
[2020-05-28] MEDS: INSULIN LANTUS (GLARGINE) 1 /0.01ml (100units/ml) SC SCH ×2 (05:40→21:54)
--- NOTE | 2020-05-28 06:53 | NUR ---
end of shift note will endorse pt care to day shift RN pt a0x4, no s/s of distress or sob
[2020-05-28] MEDS: BUDESONIDE (INHALATION) 180 MCG IH IN SCH ×2 (06:56→21:50)
[2020-05-28] MEDS: ALBUTEROL SULF HFA 90MCG INH 200DOSE IN SCH ×3 (06:56→21:50)
[2020-05-28 08:00] VITALS: BP 131/77
--- NOTE | 2020-05-28 08:28 | NUR ---
Assessment Patient is a 54-year-old male who is alert and oriented. Prior to admission patient lived with family and functioned independently. Per patient he can care for his own ADLs. Per patient he does no use any medical equipment now. Per patient he will return home to her prior living arrangements post discharge and family will transport him home. Patient states SANDY Stoll schedule him an appointment to follow up with a doctor upon discharge. Informed patient he has the right to participate in all discharge planning. Patient verbalized understanding and agreed to discharge plan. Addendum: 05/28/20 at 0829 by JAYLON MARKHAM Amended: Links added.
[2020-05-28 08:48] VITALS: BP 131/77
[2020-05-28] MEDS: FUROSEMIDE 40 MG/4 ML VIAL IV SCH (09:08)
[2020-05-28] MEDS: ZINC SULFATE 220mg CAP or TAB PO SCH (09:08)
[2020-05-28] MEDS: cefTRIAXone 1GM/50ML D5W 50 ML IV SCH (09:08)
[2020-05-28] MEDS: ASCORBIC ACID 1,000 MG TAB PO SCH (09:09)
[2020-05-28] MEDS: CHOLECALCIFEROL (VITD3) 2,000 UNIT CAP PO SCH (09:09)
[2020-05-28] MEDS: DexAMETHasone 4 MG TAB PO SCH (09:09)
[2020-05-28] MEDS: APIXABAN 5 MG TAB PO SCH ×2 (09:09→21:54)
[2020-05-28] MEDS: DOXYCYCLINE 100 MG TAB/CAP PO SCH ×2 (09:09→21:54)
[2020-05-28 13:03] VITALS: BP 121/80
--- NOTE | 2020-05-28 13:10 | NUR ---
Dr Castellon bedside with patient discussing plan of care
[2020-05-28 17:00] VITALS: BP 119/82
--- NOTE | 2020-05-28 17:45 | NUR ---
OXYGEN Titrated 02 from 7L to 6L oxymizer, patient saturation at 94%. Will continue to monitor
--- NOTE | 2020-05-28 19:30 | NUR ---
OPENING NOTE Received report from day shift RN. Patient is A&O X's 4 with no s/s of distress and reports no pain. Patient is receiving 6L 02 via oxymizer. saturation is at 96%. Patient reports only feeling SOB with exertion. Educated patient that it is safer to use O2 while ambulating. Patient refusing saying "I am not going to do that, I don't want to use that long cord." Educated patient on POC and to use call light when in need of any assistance. Patient verbalized understanding. Bed is in lowest/locked position with side rails up X's 2 and call light is within reach of patient. Will continue care.
[2020-05-28 22:05] VITALS: BP 125/78
[2020-05-29 05:00] VITALS: BP 135/83
[2020-05-29] MEDS: InsuLIN REG 1unit/0.01ml Soln (100units/ml) SC SCH ×5 (06:55→22:08)
[2020-05-29] MEDS: INSULIN LANTUS (GLARGINE) 1 /0.01ml (100units/ml) SC SCH ×3 (07:00→22:04)
[2020-05-29] MEDS: ACCU-CHEK COMFORT CURVE STRIP VI SCH ×4 (07:01→21:59)
[2020-05-29] MEDS: ALBUTEROL SULF HFA 90MCG INH 200DOSE IN SCH ×3 (07:53→22:08)
[2020-05-29] MEDS: BUDESONIDE (INHALATION) 180 MCG IH IN SCH ×2 (07:53→22:08)
[2020-05-29 08:48] VITALS: BP 125/83
[2020-05-29] MEDS ORDERED: INSULIN LANTUS (GLARGINE) 1 /0.01ml (100units/ml) SC ONE (09:45)
[2020-05-29] MEDS: cefTRIAXone 1GM/50ML D5W 50 ML IV SCH (10:44)
[2020-05-29] MEDS: APIXABAN 5 MG TAB PO SCH ×2 (10:45→21:58)
[2020-05-29] MEDS: CHOLECALCIFEROL (VITD3) 2,000 UNIT CAP PO SCH (10:45)
[2020-05-29] MEDS: ZINC SULFATE 220mg CAP or TAB PO SCH (10:45)
[2020-05-29] MEDS: DexAMETHasone 4 MG TAB PO SCH (10:46)
[2020-05-29] MEDS: DOXYCYCLINE 100 MG TAB/CAP PO SCH ×2 (10:46→21:59)
[2020-05-29] MEDS: ASCORBIC ACID 1,000 MG TAB PO SCH (10:46)
[2020-05-29] MEDS: FUROSEMIDE 40 MG/4 ML VIAL IV SCH (10:46)
[2020-05-29] MEDS: HYDROcodone-ACET 5/325MG TAB PO PRN (11:57)
--- NOTE | 2020-05-29 12:40 | NUR ---
TITRATED PATIENT TO 4 L N/C PATIENTS O2 SATURATION IS 95%
[2020-05-29] MEDS ORDERED: SUCRALFATE 1 GM/10 ML ORAL SUSP PO ONE (12:45)
[2020-05-29] MEDS ORDERED: PANTOPRAZOLE 40 MG TAB PO ONE (12:45)
[2020-05-29 14:24] VITALS: BP 123/81
--- NOTE | 2020-05-29 15:30 | NUR ---
O2 TITRATION TITRATED PATIENT TO 2.5 L NC PATIENTS 02 SATURATION IS 94 TO 95%
[2020-05-29] MEDS: SUCRALFATE 1 GM/10 ML ORAL SUSP PO SCH ×2 (16:55→21:58)
[2020-05-29 16:58] VITALS: BP 138/75
--- NOTE | 2020-05-29 17:41 | NUR ---
TITRATED PATIENT TO 2 L NC PATIENTS O2 IS 94%
[2020-05-29 19:47] VITALS: BP 138/75
[2020-05-29] MEDS: PANTOPRAZOLE 40 MG TAB PO SCH (21:59)
[2020-05-29 22:00] VITALS: BP 111/70
[2020-05-30 05:00] VITALS: BP 127/85
[2020-05-30] MEDS: ACCU-CHEK COMFORT CURVE STRIP VI SCH ×3 (06:40→17:00)
[2020-05-30] MEDS: SUCRALFATE 1 GM/10 ML ORAL SUSP PO SCH ×3 (06:41→17:00)
[2020-05-30] MEDS: InsuLIN REG 1unit/0.01ml Soln (100units/ml) SC SCH ×3 (06:41→17:00)
[2020-05-30] MEDS: ALBUTEROL SULF HFA 90MCG INH 200DOSE IN SCH ×2 (06:53→14:57)
[2020-05-30] MEDS: BUDESONIDE (INHALATION) 180 MCG IH IN SCH (06:53)
[2020-05-30 09:00] VITALS: BP 114/72
[2020-05-30] MEDS: cefTRIAXone 1GM/50ML D5W 50 ML IV SCH (10:28)
[2020-05-30] MEDS: ZINC SULFATE 220mg CAP or TAB PO SCH (10:28)
[2020-05-30] MEDS: APIXABAN 5 MG TAB PO SCH (10:29)
[2020-05-30] MEDS: DOXYCYCLINE 100 MG TAB/CAP PO SCH (10:30)
[2020-05-30] MEDS: DexAMETHasone 4 MG TAB PO SCH (10:30)
[2020-05-30] MEDS: CHOLECALCIFEROL (VITD3) 2,000 UNIT CAP PO SCH (10:30)
[2020-05-30] MEDS: ASCORBIC ACID 1,000 MG TAB PO SCH (10:30)
[2020-05-30] MEDS: PANTOPRAZOLE 40 MG TAB PO SCH (10:31)
[2020-05-30] MEDS: FUROSEMIDE 40 MG/4 ML VIAL IV SCH (10:31)
[2020-05-30] MEDS: INSULIN LANTUS (GLARGINE) 1 /0.01ml (100units/ml) SC SCH (10:53)
[2020-05-30 12:57] VITALS: BP 131/82
--- NOTE | 2020-05-30 13:27 | NUR ---
Covid swab walked to lab. Awaiting result at this time. Awaiting oxygen arrangement for home.
--- NOTE | 2020-05-30 15:36 | NUR ---
D/C planning Per social service consult for home oxygen at 2 l/min. Faxed clinical information to [facility] at 12:00 requesting for portable oxygen to be deliver to the front lobby and concentrate to patient home. per Betty with [facility] portable has been deliver and concentrate oxygen will be deliver to patient home. SANDY Nieves informed me oxygen is at bedside.
--- NOTE | 2020-05-30 16:24 | NUR ---
Discharge instructions given as ordered. Encourage to follow up with PMD as instructed. All questions and concerns addressed. Patient verbalized understanding. Medication reconciliation form completed and copy given to patient. New prescription medications ready for pickle cutter at [facility] after patient's co pay. Patient instructed on use, s/s, s/e, contraindications including how to check BS and self administered meds as ordered he verbalized understanding and returned demonstration. IV removed with catheter intact, pressure dressing applied. Portable oxygen delivered to bedside and patient instructed on use, he states concentrator will be delivered to his house he verbalized understanding. Patient awaiting pickle cutter from his at this time. No acute distress or sob noted.
--- NOTE | 2020-05-30 17:00 | NUR ---
Patient taken to vehicle via wheelchair with all personal belongings including portable oxygen tank which he refuses to wear right now stating he already knows how to use it and does not need it right now he states he's okay and not sob. No distress or sob noted. Patient accompanied by staff, EVS and security per Covid 19 protocol. No distress noted at time of departure.
[2020-06-01] MEDS ORDERED: APIXABAN 5 MG TAB PO SCH (10:00)
== END 2020-05-30 17:00 | disposition home or self-care (01) | DRG 871 ==
LOC: ER 08:27 → TELE 08:28 → TELE-EAST 11:21 → EAST 05-23 19:30
PROVIDERS: ADMIT Hospitalist; ATTEND Internal Medicine
PROC: XW033E5 Introduction of Remdesivir Anti-infective into Peripheral Vein, Percutaneous Approach, New Technology Group 5 (ICD-10-PCS; principal; 2020-05-21)
PROC: XW13325 Transfusion of Convalescent Plasma (Nonautologous) into Peripheral Vein, Percutaneous Approach, New Technology Group 5 (ICD-10-PCS; 2020-05-22)
DX: A41.89 Other specified sepsis (principal); U07.1 COVID-19; J96.01 Acute respiratory failure with hypoxia; E43 Unspecified severe protein-calorie malnutrition; J12.89 Other viral pneumonia; E87.1 Hypo-osmolality and hyponatremia; E66.9 Obesity, unspecified; K29.70 Gastritis, unspecified, without bleeding; E11.40 Type 2 diabetes mellitus with diabetic neuropathy, unspecified; E11.65 Type 2 diabetes mellitus with hyperglycemia; E78.5 Hyperlipidemia, unspecified; Z68.29 Body mass index [BMI] 29.0-29.9, adult
CPT/HCPCS: 36415; 36430; 36600; 71045; 71275; 80053; 80061; 80307; 81001; 82728; 82805; 82962; 83036; 83605; 83615; 83735; 83880; 84100; 84443; 84484; 85025; 85379; 85610; 85730; 86141; 86850; 86900; 86901; 87040; 87086; 87426; 93005; 93970; 94640; 96365; 96367; G0378; J0696; J1100; J1815; J2543; J3490

== ENCOUNTER → 2020-07-03 | Outpatient (CLI) | payer OTHER ==
[~2020-07-03] MED LIST: ALBUAER3 IN; MULT-1018 PO
[2020-07-03 10:39] LABS: Basophils # (auto) 0.1 10 ^3/uL (0-0.2); Eosinophils # (auto) 0.4 10 ^3/uL (0-0.8); Eosinophils % (auto) 5.5 % (0.0-7.0); Hematocrit 43.9 % (41.0-53.0); Hemoglobin 14.8 g/dL (13.5-17.5); Lymphocytes # (auto) 1.5 10 ^3/uL (0.4-5.4); Lymphocytes % (auto) 21.9 % (10.0-50.0); Mean Corpuscular Hemoglobin 29.4 pg (28.0-32.0); Mean Corpuscular Hgb Conc. 33.7 g/dL (32.0-36.0); Mean Corpuscular Volume 87.4 fL (80.0-100.0); Monocytes # (auto) 0.6 10 ^3/uL (0-1.3); Monocytes % (auto) 9.3 % (0.0-12.0); Neutrophils # (auto) 4.2 10 ^3/uL (1.6-8.6); Neutrophils % (auto) 62.3 % (37.0-80.0); Platelet Count (auto) 227 10^3/uL (140-450); Red Blood Cells 5.02 10^6/uL (4.5-5.90); Red Cell Distribution Width 14.5 % (11.8-14.3); White Blood Cell 6.8 10^3/uL (4.4-10.8)
[2020-07-03 10:47] LABS: Urine Bacteria FEW /hpf (None Seen); Urine Blood Negative /uL (Negative); Urine Mucus FEW (None Seen); Urine Specific Gravity 1.026 (1.001-1.035); Urine WBC <1 /hpf (0 - 3)
[2020-07-03 11:03] LABS: Albumin 3.6 g/dL (3.4-5.0); Calcium 9.4 mg/dL (8.5-10.1); Potassium 4.2 mmol/L (3.5-5.1)
[2020-07-03 11:09] LABS: Total Protein 7.5 g/dL (6.4-8.2)
[2020-07-03 11:17] LABS: Free T4 (Free Thyroxine) 0.99 ng/dL (0.89-1.76)
[2020-07-03 11:18] LABS: Folate (Folic Acid) 14.48 ng/mL (5.38-24)
== END | disposition home or self-care (01) ==
LOC: LAB 09:58
PROVIDERS: ATTEND Internal Medicine
DX: E11.22 Type 2 diabetes mellitus with diabetic chronic kidney disease (principal); N18.9 Chronic kidney disease, unspecified
CPT/HCPCS: 36415; 80053; 80061; 81001; 82043; 82306; 82607; 82746; 83036; 84439; 84443; 85025